=== PATIENT | male | born 1990 | race Asian ===

== ENCOUNTER 2020-07-30 18:52 | Emergency (ER) | payer SELFPAY ==
[~2020-07-30] VITALS: Ht 172.7 cm; Wt 84.1 kg
[2020-07-30 18:53] VITALS: BP 145/73
[2020-07-30] MEDS ORDERED: PHEN-748 PO (18:55)
[2020-07-30] MEDS ORDERED: D-ME-162 PO (18:55)
[2020-07-30] MEDS: ACETAMINOPHEN 500 MG TABLET PO ONE ×2 (19:50→19:53)
== END 2020-07-30 19:59 | disposition left against medical advice (07) ==
LOC: EMS 18:52
DX: R05 Cough (principal); Z53.21 Procedure and treatment not carried out due to patient leaving prior to being seen by health care provider
CPT/HCPCS: Z7610